=== PATIENT | female | born 1930 | race Caucasian/White ===

== ENCOUNTER 2017-02-21 09:58 | Day surgery (SDC) | payer MEDICARE, OTHER ==
[~2017-02-21] VITALS: Ht 149.9 cm; Wt 61.0 kg
[~2017-02-21 09:58] MED LIST: ADV250INH IH; ALBU0.63 INHALATION; CLON0.1T PO; CRAMPS PO; CYCL1DRO OU; DOCU240C41 PO; FRSM80T PO; HYDR-3939 PO; LEVO100T6 PO; LEVO250T45 PO; Lactated Ringer's 1,000 ML IV ONE; MULT-1018 PO; POTA10CA42 PO; PREG75CA PO; TIOT18CA3 IH
[2017-02-21] MEDS ORDERED: Propofol 10,000 mCg/mL 20 mL Inj ONE (09:59)
[2017-02-21 10:25] VITALS: BP 109/68; PULSE 68; RESP 16; O2SAT 98
[2017-02-21] MEDS ORDERED: TURM500C7 PO (10:25)
[2017-02-21] MEDS ORDERED: SPIR50TA2 PO (10:25)
--- NOTE | 2017-02-21 11:09 | PCM.ENDEGD ---
EGD Date of Service: Feb 21, 2017 Physician Lee Albarado MD Pre Procedure Diagnosis: Anemia Post Procedure Dx & Findings: Stomach full of food Procedure Esophagogastroduodenoscopy PROCEDURE IN DETAIL: After proper sedation patient was placed on left lateral decubitus position. Olympus video endoscope was inserted into patient's mid mouth and the scope was intubated into the esophagus under sedation. Scope was advanced slowly into the esophagus and the visualized esophagus showed normal white squamous cell mucosa. The Z line was noted at 40 cm and it was intact. As soon as we entered the stomach, we saw significant amount of food. Stomach was decompressed. I got a permission from the anesthesiologist to see if there is any evidence of pyloric stenosis. With minimal insufflation, scope was advanced into the distal stomach. The distal stomach showed what appeared to be like an anastomosis site. Of course visualization was not ideal. Scope further events to the small intestines. Which showed normal villous structures without any ulcer or mass erosion. Impression Stomach full of food No source of anemia. Colonoscopy was canceled because she was having multiple diarrhea yesterday however it significantly better. Recommendation Follow up in the GI clinic with the PA Dr. Dejesus to evaluate for gastroparesis and resolution of diarrhea. If diarrhea does not resolve, start workup for diarrhea. Presedation Assessment Risks and Benefits Informed consent was obtained from the patient after all risks and benefits including but not limited to drug reaction, infection, pain, bleeding, perforation, as well as alternatives were discussed. Patient monitoring Continuous pulse oximetry, cardiac monitoring, blood pressure monitoring, IV access, and oxygen at 2L per nasal cannula. Complications There were no periprocedural complications identified. Post Procedure Plan Post Procedure Recommendations 1. Restrict activities today. 2. Resume normal activities in the morning. 3. Resume medications. 4. GERD behavioral modification: - Avoid fatty, acidic, spicy, large meals - Do not lie down after meals - Do not eat or drink anything for at least 2 1/2 hours before going to bed at night - Discontinue tobacco and alcohol - Decrease or avoid caffeine - Avoid chocolate and mints - Decrease weight - Avoid aspirin and non steroidal anti-inflammatory agents (NSAID) such as Aleve, Advil, Mobic, Naproxen, Ibuprofen, etc 5. Add proton pump inhibitor. Take 30 minutes before 1st meal of the day. 6. Patient informed of normal post procedure side effects as bloating, drowsiness, blood streaking in the stool 7. If gastric biopsy reveal H.pylori, continue with appropriate treatment 8. If small bowel biopsy reveals celiac, continue with appropriate treatment 9. Please don't hesitate to call me with any questions Lee Albarado MD Feb 21, 2017 11:09
[2017-02-21 11:10] VITALS: BP 76/47; PULSE 67; RESP 16; O2SAT 96
[2017-02-21 11:13] VITALS: BP 76/49; PULSE 62; RESP 16; O2SAT 96
[2017-02-21 11:16] VITALS: BP 87/57; PULSE 62; RESP 16; O2SAT 96
[2017-02-21 11:26] VITALS: BP 105/67; PULSE 70; RESP 16; O2SAT 98
[2017-02-21 11:36] VITALS: BP 110/74; PULSE 65; RESP 16; O2SAT 100
--- NOTE | 2017-02-21 17:58 | PCM.HPANE ---
Patient Data Date of Service: Feb 21, 2017 (0700) Surgeon Admitting Provider: Attending Provider:Lee Albarado MD Primary Care Physician:Ayush Laws MD Other Provider:Cristy Christianson Anesthesia Reason for Visit Anemia Ht/WT & BMI Height (Feet): 4 Height (Inches): 11 Weight (Kilograms): 61 Body Mass Index 27.00 Allergies Coded Allergies: Sulfa (Sulfonamide Antibiotics) (Verified Allergy, Intermediate, BLISTERS , 02/21/17) morphine (Verified Allergy, Intermediate, rash, 02/21/17) Penicillins (Verified Allergy, Unknown, RASH, 02/21/17) codeine (Verified Allergy, Unknown, RASH, 02/21/17) Past Anesthesia History Anesthesia History: Denies:: Abnormal Airway, Anesthesia Reactions, Difficult Intubation, Fam Anesthesia Reaction, Fam Malignant Hypertherm, Malignant Hyperthermia Diabetes History Hx Diabetes?: No MRSA MRSA: No Medications Reported Medications Turmeric Root Extract (Turmeric)500 Mg Lmouslb287 Mg PO DAILY 02/21/17 Spironolactone 50 Mg Vlsbnm98 Mg PO DAILY #30 TABLET Ref 0 02/21/17 Docusate Calcium (Stool Softener)240 Mg Nsahtqm200 Mg PO HS PRN For Constipation 02/20/17 Pregabalin (Lyrica)75 Mg Dikytjx06 Mg PO TID 30 Days Ref 0 08/19/15 Multivitamin (Multi Vitamin Daily)1 Each Tablet1 Each PO DAILY Ref 0 03/15/14 Levothyroxine 100 Mcg Znoldr24 Mcg PO DAILY For Thyroid Replacement Ref 0 03/15/14 Cyclosporine (Restasis)1 Each Droperette1 Gtt OU BID 03/15/14 Discontinued Reported Medications Levofloxacin 250 Mg Wvlkmi091 Mg PO DAILY 02/20/17 Tiotropium [place] (Spiriva)18 Mcg Cap.w.dev18 Mcg IH DAILY 2 puffs daily #1 PKG Ref 0 08/19/15 Furosemide 80 Mg Tab80 Mg PO BID 30 Days Ref 0 08/19/15 Potassium Chloride 10 Meq Capsule.er20 Meq PO BID 30 Days Ref 0 TAKE WITH FOOD 08/19/15 Albuterol Neb Soln 0.63 Mg/3 Ml Vial.neb0.63 Mg INHALATION TID Ref 0 03/14/15 Fluticasone/Salmeterol (Advair 250-50 Diskus)60 Puff/Inh Disk1 Puff IH PRN PRN For Wheezing Ref 0 03/15/14 Hydralazine 25 Mg Ygfzgz04 Mg PO BID Ref 0 03/15/14 Clonidine 0.1 Mg Tablet0.2 Mg PO BID Ref 0 03/15/14 [Leg Cramps] No Conflict Check1 Cap PO TID 08/04/13 History History of ENT Problems?: Yes HEENT History: Positive for:: Cataracts (BILATERAL REMOVED, lens implants) Sinus Problem Denies:: Abnormal Airway Difficult Intubation Dysphagia Hearing Problem Denture Type: Full- Upper Partial- Lower Teeth Condition: Within Normal Limits Hx of Heart Problems?: No Cardiovascular History: Positive for:: Edema Hypertension Thrombophlebitis Denies:: AICD Cardiac Surgery Chest Pain Congestive Heart Failure Heart Murmur Irregular Heartbeat Pacemaker Valvular Heart Disease Hx of Respiratory Problem?: Yes Respiratory History: Positive for:: Asthma Pneumonia Denies:: COPD Chest Surgery Dyspnea Emphysema Hemoptysis Tuberculosis Hx Neurologic Problems?: Yes Neurological History: Positive for:: Dizziness Headaches Seizures Denies:: Alzheimer's Disease CVA Dementia Parkinson's Disease Hx of GI Problems?: Yes Hx of Problems?: Yes Genitourinary History: Positive for:: Urinary Tract Infection Denies:: HX of Hemodialysis Kidney Stones HX of Peritoneal Dialysis: No Female Hx: Denies:: Currently Endometriosis Pelvic Inflammatory Problems with Breasts? Hx Musculoskeletal Problems?: Yes Musculoskeletal History: Positive for:: Back Injury (BACK SURGERY 2001) Joint Replacement Musculoskeletal Trauma Hx of Psycho/Social Problems?: No Psycho Social History: Positive for:: Anxiety Hx Depression Denies:: Bipolar Disorder Suicide Attempt Hx Surgeries?: Yes (BACK, COLON RESECTION, TONSILS, ANA PAULA, APPY, HYSTO, ) Hx Any Other Health Problems?: Yes Other History: Positive for:: Cancer (COLON POLYPS CANCEROUS) Endocrine Disease Hospitalization ([facility], BACK SURGERY, ) Thyroid Disease History Blood Transfusions: Positive for:: Blood Transfuse Reaction Blood Transfusions Hx Diabetes: No Hx Alcohol Use: NoHx Substance Use: No Stop/Bang Treated for Sleep Apnea?: No Do You Have a CPAP Machine?: No S-Snoring: Do You Snore Loudly: No T-Tired: feel tired, fatigued: No O-Obsered: Observed not breath: No P-Blood Pressure: treated: No B- Body Mass Index > 35 kg/m2: No A- Age over 50: Yes N- Neck Large Circumference: No G- Gender Male: No ROMY Total Score: 1 Risk Assessment Category Category 1A: Patient has history of documented sleep apnea, and HAS NOT received any narcotic, sedative or anesthesia administration during this stay. Category 1B: Patient has history of documented sleep apnea, and HAS received any narcotic , sedative or anesthesia administration during this stay Category 2: Patient has SUSPECTED Obstructive Sleep Apnea, and HAS received any narcotic , sedative or anesthesia administration during this stay. Category 3: Patient has SUSPECTED Obstructive Sleep Apnea and HAS NOT received narcotic, sedative or anesthesia administration during this stay. Category 4: Outpatient in Procedural Areas with known sleep apnea or who screen positive for High Risk via the STOP/BANG questionnaire. Exam Exam Vital Signs Vital Signs Date Time Temp Pulse Resp B/P Pulse Ox O2 Delivery O2 Flow Rate FiO2 02/21/17 11:36 65 16 110/74 100 Room Air 02/21/17 11:26 70 16 105/67 98 Room Air 02/21/17 11:16 62 16 87/57 96 Room Air 02/21/17 11:13 62 16 76/49 96 Room Air 02/21/17 11:10 67 16 76/47 96 Room Air 02/21/17 10:25 36.1 68 16 109/68 98 Room Air General Appearance: Alert, Oriented X3, Cooperative, No Acute Distress HEENT/AIRWAY: MP 2 Lungs: Clear to Auscultation Heart: Exam Unremarkable Meds/Labs/Diagnostics Admission Meds Current Medications Lactated Ringer's (Lr) 1,000 ml @ 10 mls/hr Q24H ONCE IV Last administered on 02/21/17t 11:04; Start 02/21/17 at 06:00; Stop 02/22/17 at 05:59 Plan Impression Patient chart reviewed, patient interviewed and anesthestic plan with risks, benefits, and alternatives discussed, and informed consent obtained. ASA Physical Status: ASA2 Mod Systemic Disease Anesthetic Plan: MAC Bene/Risks/Altern/Consents: Yes HP Complete Prior to Induction: Yes Serafin Crowder MD Feb 21, 2017 17:58
== END 2017-02-21 23:59 | disposition home or self-care (01) ==
LOC: END 09:58
PROVIDERS: ATTEND Internal Medicine
DX: D64.9 Anemia, unspecified (principal); K92.1 Melena; K59.00 Constipation, unspecified; Z85.038 Personal history of other malignant neoplasm of large intestine; I10 Essential (primary) hypertension; J44.9 Chronic obstructive pulmonary disease, unspecified; E03.9 Hypothyroidism, unspecified; N28.9 Disorder of kidney and ureter, unspecified; I51.7 Cardiomegaly
CPT/HCPCS: 43235; J7120